=== PATIENT | male | born 1995 | race Caucasian/White ===

== ENCOUNTER 2018-12-31 16:53 | Emergency (ER) | payer OTHER ==
[~2018-12-31] VITALS: Ht 167.6 cm; Wt 74.2 kg
[~2018-12-31 16:53] MED LIST: IBUP-1542 PO; OMEP40CA6 PO; ONDA4TAB14 PO
[2018-12-31 17:06] VITALS: Ht 167.6 cm; Wt 74.2 kg
[2018-12-31] MEDS ORDERED: IBUPROFEN 600 MG TAB PO ONE (21:30)
[2018-12-31] MEDS ORDERED: HYDROCODONE/APAP (5/325) TAB PO ONE (21:30)
[2018-12-31] MEDS ORDERED: DIPHTH/TET/ACEL PERTUSS (ADULT) 0.5 ML VIAL IM* ONE (21:30)
--- NOTE | 2018-12-31 22:15 | ERD ---
ER Documentation Chief Complaint Chief Complaint Complains of right pinky finger pain after a fall last night HPI This is a 23-year-old male with a nonsignificant past medical history presents ED with right fifth digit pain status post ground-level fall last night. 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 Patient admits to swelling, tingling and decreased range of motion due to pain. Denies numbness and lack of sensation. Admits to a history of alcohol drinking but states that he has not drank in 7 months. ROS All systems reviewed and are negative except as per history of present illness. Medications Home Meds Active Scripts Omeprazole* (Omeprazole*) 40 Mg Capsule.dr, 40 MG PO DAILY, #20 CAP Prov:PAWEL HODGE PA-C 07/08/18 Ondansetron (Ondansetron Odt) 4 Mg Tab.rapdis, 4 MG PO Q6H PRN for NAUSEA AND/OR VOMITING, #10 TAB Prov:PAWEL HODGE PA-C 07/08/18 Ibuprofen* (Motrin*) 600 Mg Tab, 600 MG PO Q6, #30 TAB Prov:BERNA ROBB PA-C 07/03/15 Allergies Allergies: Coded Allergies: No Known Allergy (Unverified , 07/03/15) PMhx/Soc Medical and Surgical Hx: pt denies Surgical Hx History of Surgery: No Anesthesia Reaction: No Hx Neurological Disorder: No Hx Respiratory Disorders: No Hx Cardiac Disorders: No Hx Psychiatric Problems: No Hx Miscellaneous Medical Probl: Yes (alcohol abuse) Hx Alcohol Use: Yes (FORMER) Hx Substance Use: Yes (marijuana) Hx Tobacco Use: Yes (FORMER) Smoking Status: Former smoker FmHx Family History: No diabetes Physical Exam Vitals Vital Signs Date Temp Pulse Resp B/P (MAP) Pulse Ox O2 O2 Flow FiO2 Time Delivery Rate 12/31/18 99.2 104 20 137/85 98 17:06 (102) Physical Exam Physical Exam Vitals signs: Reviewed by me. General: Well developed, well nourished, in no acute distress. Patient is awake and alert. Head: Normocephalic, atraumatic. Eyes: Normal conjunctiva, ENT: Pharynx is clear, Moist mucous membranes, external ears, nose and mouth normal Neck: Supple, no masses, lymphadenopathy or JVD Respiratory: Clear to auscultation bilaterally with no wheezing, rhonchi, rales, no distress Cardiovascular: RRR, no murmurs, rubs, or gallops MSK: Upper Extremity - right Skin: There is a small abrasion on patient's distal dorsal fifth digit, there is swelling and bruising of the right fifth digit Compartments: Soft Motor: Full active range of motion shoulder/elbow/wrist/hand/fingers Sensation: Intact shoulder/pinky/middle finger/thumb web space Bones: Tender to palpation along mid and distal fifth phalanx, nontender humerus/elbow/forearm/wrist/hand Snuffbox: Nontender Joints: No effusion Pulses/Perfusion: 2+ radial, Capillary refill < 2 seconds Radial ulnar median nerve tested for sensory and motor function, no deficit 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 Normal mentation Skin: warm and dry, No rash Psych: Normal mood Results 24 hrs Current Medications Medications Dose Sig/Ole Start Time Status Last (Trade) Ordered Route PRN Stop Time Admin Dose Reason Admin 1 tab ONCE ONCE 12/31/18 DC 12/31/18 Acetaminophen PO 21:30 21:53 / 12/31/18 21:31 Hydrocodone Bitart ([place] (5/325)) Ibuprofen 600 mg ONCE ONCE 12/31/18 DC 12/31/18 (Motrin) PO 21:30 21:53 12/31/18 21:31 Diphtheria/ 0.5 ml ONCE ONCE 12/31/18 DC 12/31/18 Tetanus/Acell IM* 21:30 21:54 Pertussis 12/31/18 21:31 (Adacel) Procedures/MDM EKG, MONITORS, & DIAGNOSTIC IMAGING: [place] [address] Radiology Main Line: [phone] DIAGNOSTIC IMAGING REPORT Patient: SHEY MCFARLANE : 1995 Age: 23 Sex: M MR #: [id number] DOS: 12/31/182115 Ordering MD: TARA BUSTAMANTE PA-C Location: [facility] Room/Bed: PROCEDURE: XR Finger. CLINICAL INDICATION: Trauma, pain. TECHNIQUE: Three views of the right fifth finger. COMPARISON: None available. FINDINGS: There is a dorsally displaced fracture of the fifth distal phalanx tuft. The joint spaces are preserved. There is soft tissue swelling along the fifth finger. No radiopaque foreign body is identified. IMPRESSION: Dorsally displaced fracture of the fifth distal phalanx tuft. RPTAT: HTAR .Joseph Littlejohn MD, MD Date Time Electronically viewed and signed by .Joseph Littlejohn MD, MD on 12/31/2018 22:32 .R/ CC: TARA BUSTAMANTE PA-C [phone] Procedure Splint Type: Aluminum finger splint Extremity: Right fifth digit Indication: Fracture Splint Assessment: Neurovascularly intact post splint placement with good fit. The patient was consented at bedside prior to splint application and states understanding of risks, benefits, and alternatives. The patient was neurovascularly intact prior to and status post application of the splint. The patient tolerated the procedure well and there were no complications ER COURSE: The patient was given [place] and ibuprofen The medication was well tolerated and the patient reports improvement in symptoms. The patient was stable throughout ED course. I kept the patient and/or family informed of laboratory and diagnostic imaging results throughout the emergency room course. The patient was promptly evaluated and a treatment plan was devised based on H&P and other data. This plan was discussed with the patient who agreed and had no further questions or concerns prior to discharge. MEDICAL DECISION MAKING: This is a 23-year-old male who presents ED with right fifth digit injury status post ground-level fall last night. X-rays remarkable for aDorsally displaced fracture of the fifth distal phalanx tuft. Patient was placed in an aluminum finger splint and advised to follow-up with orthopedic surgery. Patient was given copies of x-ray imaging in the emergency department as well as CD. Patient does have a mildly elevated pulse in the emergency department of 104 which is likely due to pain. History and physical examination other data not consistent with emergent processes including but not limited to open fracture, dislocation, tendon rupture, ischemia, neurovascular injury, compartment syndrome, septic joint, avascular necrosis, osteomyelitis, necrotizing fasciitis, septic joint, septic arthritis, or other emergent conditions. Patient's vitals are stable and can be managed outpatient with close follow-up. Advised patient to follow-up with primary care in the next 48 hours. Return to ED with any worsening symptoms. DISPOSITION PLAN: We discussed follow up with the patient's primary care doctor within 24 to 48 ho urs. Patient counseled regarding my diagnostic impression and care plan. Prior to discharge all questions answered. Pt agrees with treatment plan and understands strict return precautions. Precautionary instructions provided including instructions to return to the ER if not improving or for any worsening or changing symptoms or concerns. SPECIALIST FOLLOW UP RECOMMENDED: None Patient has been advised to follow up with primary care in 1-2 days. Disclaimer: Inadvertent spelling and grammatical errors are likely due to EHR/dictation software use and do not reflect on the overall quality of patient care. Also, please note that the electronic time recorded on this note does not necessarily reflect the actual time of the patient encounter. Departure Diagnosis: Primary Impression: Finger fracture, right Encounter type: initial encounter Finger: little finger Fracture type: closed Phalanx: distal Fracture alignment: displaced Qualified Codes: S62.636A - Displaced fracture of distal phalanx of right little finger, initial encounter for closed fracture Condition: Stable Patient Instructions: Finger Contusion, Fracture, Finger (Closed) Referrals: TJ NGUYEN MD [facility] Additional Instructions: Advised follow-up with orthopedic surgeon in the next 48 hours. Patient advised to return to the ED immediately for new or worsening symptoms. Patient advised to follow up with primary care provider in the next 24-48 hours. Patient verbalized understanding and agrees with treatment plan and course of action. If patient has no primary care they may follow up with one of the community clinics listed on the following page or one of the options listed below [facility] + [facility] [address] [place] [id number] or [facility] [address] [place] [address] or [facility] [address] [place] [address] TARA BUSTAMANTE PA-C Dec 31, 2018 22:15
[2018-12-31] MEDS ORDERED: HYDR-4011 PO (22:48)
[2018-12-31] MEDS ORDERED: IBUP-1542 PO (22:49)
[2018-12-31 23:16] VITALS: BP 129/80; PULSE 105; RESP 19
== END 2018-12-31 23:29 | disposition home or self-care (01) ==
LOC: FTE 16:53
DX: S62.636A Displaced fracture of distal phalanx of right little finger, initial encounter for closed fracture (principal); W01.0XXA Fall on same level from slipping, tripping and stumbling without subsequent striking against object, initial encounter; Y92.9 Unspecified place or not applicable; Z23 Encounter for immunization; Z87.891 Personal history of nicotine dependence
CPT/HCPCS: 29130; 73140; 90715; Z7610; 90471